=== PATIENT | female | born 1995 | race Two or more races ===

== ENCOUNTER 2018-10-22 21:49 | Emergency (ER) | payer OTHER ==
[~2018-10-22] VITALS: Ht 172.7 cm; Wt 83.9 kg
== END 2018-10-23 00:57 | disposition home or self-care (01) ==
LOC: ER 21:49
DX: R51 Headache (principal); R20.0 Anesthesia of skin

== ENCOUNTER 2019-01-14 16:10 | Emergency (ER) | payer OTHER ==
[~2019-01-14] VITALS: Ht 172.7 cm; Wt 85.3 kg
[2019-01-14] MEDS ORDERED: FLAGYL500MG (16:21)
[2019-01-14] MEDS ORDERED: DOXYCYCLINE HY100 MG (16:21)
== END 2019-01-14 21:15 | disposition home or self-care (01) ==
LOC: ER 16:10
DX: B00.9 Herpesviral infection, unspecified (principal)